=== PATIENT | female | born 1970 | race Two or more races ===

== ENCOUNTER 2018-12-01 18:05 | Emergency (ER) | payer OTHER ==
[~2018-12-01] VITALS: Ht 152.4 cm; Wt 78.0 kg
== END 2018-12-01 21:09 | disposition home or self-care (01) ==
LOC: ER 18:05
DX: B34.9 Viral infection, unspecified (principal); R50.9 Fever, unspecified

== ENCOUNTER 2020-10-18 09:17 | Outpatient (CLI) | payer OTHER | END 2020-10-18 09:41 | disposition home or self-care (01) | LOC: MAMO-SONO 09:17 | PROVIDERS: ATTEND Specialist | DX: N60.11 Diffuse cystic mastopathy of right breast (principal); N60.12 Diffuse cystic mastopathy of left breast ==

== ENCOUNTER → 2021-01-28 09:18 | Outpatient (CLI) | payer OTHER | END | disposition home or self-care (01) | LOC: RAD 09:18 | PROVIDERS: ATTEND Specialist | DX: M46.97 Unspecified inflammatory spondylopathy, lumbosacral region (principal) ==

== ENCOUNTER 2022-08-18 11:03 | Outpatient (CLI) | payer OTHER | END 2022-08-18 11:08 | disposition home or self-care (01) | LOC: RAD 11:03 | PROVIDERS: ATTEND General Practice | DX: M79.642 Pain in left hand (principal) ==

== ENCOUNTER 2023-03-09 09:15 | Outpatient (CLI) | payer OTHER | END 2023-03-09 09:19 | disposition home or self-care (01) | LOC: LAB 09:15 | PROVIDERS: ATTEND Internal Medicine | DX: D64.9 Anemia, unspecified (principal); I48.91 Unspecified atrial fibrillation; N39.0 Urinary tract infection, site not specified; E03.9 Hypothyroidism, unspecified; M35.1 Other overlap syndromes; E11.9 Type 2 diabetes mellitus without complications; E55.9 Vitamin D deficiency, unspecified; Z12.11 Encounter for screening for malignant neoplasm of colon; E78.2 Mixed hyperlipidemia; E23.0 Hypopituitarism; N95.1 Menopausal and female climacteric states; D35.2 Benign neoplasm of pituitary gland ==

== ENCOUNTER 2023-03-09 10:10 | Outpatient (CLI) | payer OTHER | END 2023-03-09 10:16 | disposition home or self-care (01) | LOC: RAD 10:10 | PROVIDERS: ATTEND Internal Medicine | DX: I11.9 Hypertensive heart disease without heart failure (principal) ==

== ENCOUNTER 2023-03-10 08:14 | Outpatient (CLI) | payer OTHER | END 2023-03-10 08:17 | disposition home or self-care (01) | LOC: LAB 08:14 | PROVIDERS: ATTEND Internal Medicine | DX: D64.9 Anemia, unspecified (principal); E11.8 Type 2 diabetes mellitus with unspecified complications; I48.91 Unspecified atrial fibrillation; N39.0 Urinary tract infection, site not specified; E03.9 Hypothyroidism, unspecified; M35.1 Other overlap syndromes; E11.9 Type 2 diabetes mellitus without complications; E55.9 Vitamin D deficiency, unspecified; Z12.11 Encounter for screening for malignant neoplasm of colon; E78.2 Mixed hyperlipidemia; E23.0 Hypopituitarism; N95.1 Menopausal and female climacteric states; D35.2 Benign neoplasm of pituitary gland ==

== ENCOUNTER 2023-09-04 07:39 | Outpatient (CLI) | payer OTHER ==
[2023-09-04 08:35] LABS: PH,URINE 6.5 (5.0-8.0); URINE APPEARANCE Clear; URINE BILIRRUBIN Negative (NEGATIVE); URINE BLOOD Small; URINE COLOR Yellow; URINE GLUCOSE Negative (NEGATIVE); URINE LEUKOCYTE Negative; URINE NITRATE Negative; URINE PROTEIN 30 (NEGATIVE); URINE UROBILINOGEN 0.2 E.U./dl
[2023-09-04 08:39] LABS: URINE BACTERIA 99.5 uL (0.0-1933); URINE EPITHELIAL CELLS 12.3 uL (0.0-38.8); URINE RBC 43.3 uL (0.0-20.8); URINE WBC 13.5 uL (0.0-23.2)
[2023-09-04 08:39] LABS: HEMATOCRIT 40.6 % (36.0-45.00); HEMOGLOBIN 13.3 g/dL (12.0-15.00); MEAN CELL VOLUME 83.3 fL (80.00-100.00); MEAN CORPUSCULAR HEMOGLOBIN 27.3 pg (27.00-32.0); MEAN CORPUSCULAR HGB CONC 32.7 g/dl (32.0-36.0); PLATELET COUNT 299 K/uL (150-450); RED BLOOD COUNT 4.87 M/uL (4.00-6.00); RED CELL DISTRIBUTION WIDTH 15.3 % (11.5-14.5)
[2023-09-04 08:51] LABS: INR 0.97; PARTIAL THROMBOPLASTIN TIME 29.1 SECONDS (22.0-34.0)
[2023-09-04 08:53] LABS: PROTHROMBIN TIME 10.2 SECONDS (9.0-11.5)
[2023-09-04 08:57] LABS: ERYTHROCYTE SEDIMENTATION RATE > 130 mm/hr
[2023-09-04 08:57] LABS: URINE CRYSTALS FEW /HPF
[2023-09-04 09:23] LABS: ALBUMIN 3.5 gm/dL (3.4-5.0); BILIRUBIN TOTAL 0.49 mg/dL (0.3-1.2); CALCIUM 9.4 mg/dL (8.5-10.1); CHOL HDL RATIO 4.5 (0-5.0); CREATININE SERUM 0.84 mg/dL (0.55-1.02); GFR 71.48; GLOBULINA 4.6 G/DL (2.4-3.5); POTASSIUM 3.98 mEq/L (3.5-5.1); T4 FREE 1.08 NG/ML (0.76-1.46); TOTAL PROTEIN 8.1 gm/dL (6.4-8.2); TSH 1.07 uIU/mL (0.358-3.74)
== END 2023-09-04 07:40 | disposition home or self-care (01) ==
LOC: LAB 07:39
PROVIDERS: ATTEND Internal Medicine
DX: D64.9 Anemia, unspecified (principal); E11.8 Type 2 diabetes mellitus with unspecified complications; I48.91 Unspecified atrial fibrillation; N39.0 Urinary tract infection, site not specified; E03.9 Hypothyroidism, unspecified; M35.1 Other overlap syndromes; E55.9 Vitamin D deficiency, unspecified; Z12.11 Encounter for screening for malignant neoplasm of colon; E78.2 Mixed hyperlipidemia

== ENCOUNTER 2024-01-05 07:48 | Outpatient (CLI) | payer OTHER ==
[2024-01-05 09:46] LABS: FERRITIN 27.5 NG/ML (8-252)
[2024-01-07 11:12] LABS: vca igm ab < 36.0 U/mL (0.0-35.9)
== END 2024-01-05 07:49 | disposition home or self-care (01) ==
LOC: LAB 07:48
PROVIDERS: ATTEND Internal Medicine
DX: D64.9 Anemia, unspecified (principal); E11.8 Type 2 diabetes mellitus with unspecified complications; I48.91 Unspecified atrial fibrillation; N39.0 Urinary tract infection, site not specified; E03.9 Hypothyroidism, unspecified; M35.1 Other overlap syndromes; E11.9 Type 2 diabetes mellitus without complications; E55.9 Vitamin D deficiency, unspecified; Z12.11 Encounter for screening for malignant neoplasm of colon; E53.8 Deficiency of other specified B group vitamins; D50.9 Iron deficiency anemia, unspecified

== ENCOUNTER 2024-04-06 10:49 | Outpatient (CLI) | payer OTHER ==
[2024-04-09 05:05] LABS: ALPHA FETO PROTEIN 1.8 ng/mL (0.0-9.2); ANTI THYROID PEROXIDASE 11 IU/mL (0-34); CA 125 9.6 U/mL (0.0-38.1); CA 15-3 22.5 U/mL (0.0-25.0); CA 19-9 2 U/mL (0-35)
[2024-04-09 07:09] LABS: COMPLEMENT C3 194 mg/dL (82-167)
[2024-04-09 11:07] LABS: COMPLEMENT C4 28 mg/dL (12-38)
[2024-04-09 15:09] LABS: ANTI SCLERODERMA 70 < 0.2 AI (0.0-0.9); ANTI-CENTROMERE AB <0.2 AI (0.0-0.9); DNA AB DOUBLE STRABDED 4 IU/mL (0-9); rnp 0.2 AI (0.0-0.9); sjogrens ssa < 0.2 AI (0.0-0.9); sjogrens ssb < 0.2 AI (0.0-0.9); smith ab < 0.2 AI (0.0-0.9)
[2024-04-09 23:04] LABS: quan ag 0.07 IU/mL (.); quan ag 0.08 IU/mL (.); quan mito > 10.00 IU/mL (.); quant nil 0.03 IU/mL (.)
[2024-04-10 19:04] LABS: PARIETAL CELL ANTIBODIES 65.8 Units (0.0-20.0)
[2024-04-11 15:09] LABS: ANTI MITOCHONDRIAL ANTIBODIES < 20.0 Units (0.0-20.0); SMOOTH MUSCLE ANTIBODY 10 Units (0-19)
== END 2024-04-06 10:50 | disposition home or self-care (01) ==
LOC: LAB 10:49
PROVIDERS: ATTEND Internal Medicine
DX: M35.1 Other overlap syndromes (principal); C80.1 Malignant (primary) neoplasm, unspecified; B90.9 Sequelae of respiratory and unspecified tuberculosis; M32.9 Systemic lupus erythematosus, unspecified

== ENCOUNTER 2024-11-01 08:00 | Outpatient (CLI) | payer OTHER | END 2024-11-01 10:52 | disposition home or self-care (01) | LOC: LAB 08:00 | PROVIDERS: ATTEND Internal Medicine | DX: D64.9 Anemia, unspecified (principal); E11.8 Type 2 diabetes mellitus with unspecified complications; I48.91 Unspecified atrial fibrillation; N39.0 Urinary tract infection, site not specified; E03.9 Hypothyroidism, unspecified; M35.1 Other overlap syndromes; E11.9 Type 2 diabetes mellitus without complications; E55.9 Vitamin D deficiency, unspecified; Z12.11 Encounter for screening for malignant neoplasm of colon; E78.2 Mixed hyperlipidemia ==

== ENCOUNTER 2025-04-18 08:09 | Outpatient (CLI) | payer OTHER ==
[2025-04-18 09:05] LABS: BASO % 0.6 % (0.1-1.2); EOS # 0.18 (0.04-0.54); EOS % 2.6 % (0.7-7.0); LYMPH # 2.84 (1.18-3.74); LYMPH % 40.4 % (19.3-53.1); MEAN PLATELET VOLUME 10.60 fl (9.4-12.4); MONO # 0.60 (0.24-0.82); MONO % 8.5 % (4.7-12.5); NEUT # 3.35 (1.56-6.13); NEUT % 47.6 % (34.0-71.1); RED CELL DISTRIBUTION WIDTH 14.4 % (11.6-14.4)
[2025-04-18 09:10] LABS: ERYTHROCYTE SEDIMENTATION RATE 107 mm/hr (0-30)
[2025-04-18 09:14] LABS: URINE APPEARANCE Clear; URINE BACTERIA 220.7 uL (0.0-1933); URINE BILIRRUBIN Negative (NEGATIVE); URINE BLOOD Small; URINE COLOR Yellow; URINE EPITHELIAL CELLS 14.5 uL (0.0-38.8); URINE GLUCOSE Negative (NEGATIVE); URINE KETONE Negative (NEGATIVE); URINE LEUKOCYTE Negative; URINE NITRATE Negative; URINE PROTEIN Negative (NEGATIVE); URINE RBC 8.9 uL (0.0-20.8); URINE UROBILINOGEN 0.2 E.U./dl; URINE WBC 9.3 uL (0.0-23.2)
[2025-04-18 09:25] LABS: URINE CAST 0.00 uL (0.0-1.40)
[2025-04-18 09:31] LABS: INR 0.98
[2025-04-18 10:00] LABS: ALT/SGPT 18.0 U/L (12-78); AST/SGOT 12.0 U/L (15-37); BILIRUBIN TOTAL 0.34 mg/dL (0.3-1.2); BUN CREA RATIO 23.0 (7.0-25.0); CHOL HDL RATIO 4.4 (0-5.0); CREATININE SERUM 0.87 mg/dL (0.55-1.02); GFR 68.11; GLOBULINA 4.7 G/DL (2.4-3.5); GLUCOSE FASTING 104.0 mg/dL (65-100); HDL 51.0 mg/dl (40-60); LDL 152.0 mg/dl (0-130); OSMOLALITY SERUM 284.0 MOSM/KG (275-295); T4 FREE 1.18 NG/ML (0.76-1.46); TSH 1.25 uIU/mL (0.358-3.74); VLDL 21.0 (0-39)
== END 2025-04-18 08:13 | disposition home or self-care (01) ==
LOC: LAB 08:09
PROVIDERS: ATTEND Internal Medicine
DX: D64.9 Anemia, unspecified (principal); E11.8 Type 2 diabetes mellitus with unspecified complications; I48.91 Unspecified atrial fibrillation; N39.0 Urinary tract infection, site not specified; E03.9 Hypothyroidism, unspecified; M35.1 Other overlap syndromes; E11.9 Type 2 diabetes mellitus without complications; E55.9 Vitamin D deficiency, unspecified; Z12.11 Encounter for screening for malignant neoplasm of colon; E78.2 Mixed hyperlipidemia

== ENCOUNTER 2025-06-28 07:12 | Outpatient (CLI) | payer OTHER ==
[2025-06-29 06:06] LABS: ESTRADIOL SERUM 29.8 pg/mL (.); LEUTEINIZING HORMONE 38.3 mIU/mL (.); PROLACTIN 19.6 ng/mL (3.6-25.2)
== END 2025-06-28 07:16 | disposition home or self-care (01) ==
LOC: LAB 07:12
PROVIDERS: ATTEND Internal Medicine
DX: E23.0 Hypopituitarism (principal); N95.1 Menopausal and female climacteric states; D35.2 Benign neoplasm of pituitary gland

== ENCOUNTER 2025-06-28 07:44 | Outpatient (CLI) | payer OTHER | END 2025-06-28 07:49 | disposition home or self-care (01) | LOC: SONOGRAMA 07:44 | PROVIDERS: ATTEND Internal Medicine | DX: N80.9 Endometriosis, unspecified (principal) ==